=== PATIENT | female | born 1985 | race Caucasian/White ===

== ENCOUNTER 2018-10-17 10:15 | Emergency (ER) | payer OTHER ==
[2018-10-17 11:27] LABS: URINE BLOOD (Dip) POC Negative (NEGATIVE); URINE GLUCOSE (Dip) POC Negative (NEGATIVE); URINE KETONES (Dip) POC Negative (NEGATIVE); URINE LEUKOCYTE EST (Dip) POC 1+ (NEGATIVE); URINE NITRITE (Dip) POC Negative (NEGATIVE); URINE TOTAL PROTEIN POC Negative (NEGATIVE)
== END 2018-10-17 12:23 | disposition home or self-care (01) ==
LOC: FTE 12:23
DX: R30.0 Dysuria (principal)
CPT/HCPCS: 81003; 87086; 99283

== ENCOUNTER 2018-10-23 13:20 | Emergency (ER) | payer OTHER ==
[2018-10-23 16:32] LABS: ADD UMIC YES; UR ASCORBIC ACID NEGATIVE (NEGATIVE); UR BACTERIA FEW /HPF (NONE SEEN); UR BILIRUBIN (Dip) NEGATIVE (NEGATIVE); UR BLOOD (Dip) NEGATIVE (NEGATIVE); UR CLARITY CLOUDY (CLEAR); UR COLOR YELLOW (YELLOW); UR GLUCOSE (Dip) NEGATIVE (NEGATIVE); UR KETONES (Dip) NEGATIVE (NEGATIVE); UR LEUKOCYTE ESTERASE (Dip) 3+ Leu/ul (NEGATIVE); UR NITRITE (Dip) NEGATIVE (NEGATIVE); UR RBC 10 /HPF (0-5); UR SPECIFIC GRAVITY (Dip) 1.012 (1.003-1.030); UR SQUAMOUS EPITHELIAL CELL MODERATE /HPF (FEW); UR TOTAL PROTEIN (Dip) NEGATIVE (NEGATIVE); UR UROBILINOGEN (Dip) NEGATIVE (NEGATIVE); UR WBC > 182 /HPF (0-5)
[2018-10-23] MEDS: ACETAMINOPHEN 325 MG TAB PO (16:58)
== END 2018-10-23 17:26 | disposition home or self-care (01) ==
LOC: FTE 13:20
DX: O99.89 Other specified diseases and conditions complicating pregnancy, childbirth and the puerperium (principal); R39.9 Unspecified symptoms and signs involving the genitourinary system; Z3A.19 19 weeks gestation of pregnancy
CPT/HCPCS: 76805; 81001; 87086; 99284-25

== ENCOUNTER 2019-02-23 18:10 | Inpatient (IN) | payer OTHER ==
[2019-02-23 20:40] LABS: ADD MAN DIFF? NO
[2019-02-23 20:46] LABS: WHITE BLOOD COUNT 9.3 10^3/ul (4.8-10.8)
[2019-02-23 20:46] LABS: BASOPHILS % 0.3 % (0.0-2.0); EOSINOPHILS % 0.1 % (0.0-7.0); HEMATOCRIT 32.6 % (37.0-47.0); HEMOGLOBIN 10.5 g/dl (12.0-16.0); LYMPHOCYTES # 2.7 10^3/ul (0.8-2.9); LYMPHOCYTES % 28.6 % (15.0-51.0); MEAN CORPUSCULAR HEMOGLOBIN 28.2 pg (29.0-33.0); MEAN CORPUSCULAR HGB CONC 32.2 g/dl (32.0-37.0); MEAN CORPUSCULAR VOLUME 87.4 fl (82.0-101.0); MONOCYTE # 0.6 10^3/ul (0.3-0.9); MONOCYTES % 6.4 % (0.0-11.0); NEUTROPHILS % 64.1 % (39.0-77.0); PLATELET COUNT 124 10^3/UL (140-415); RED BLOOD COUNT 3.73 10^6/ul (4.20-5.40); RED CELL DISTRIBUTION WIDTH 13.5 % (11.5-14.5)
[2019-02-23 20:47] LABS: MEAN PLATELET VOLUME 13.6 fl (7.4-10.4)
[2019-02-23 21:05] LABS: ALANINE AMINOTRANSFERASE 134 IU/L (13-69); ALBUMIN 3.2 g/dl (3.3-4.9); ALBUMIN/GLOBULIN RATIO 1.14; ALKALINE PHOSPHATASE 261 IU/L (42-121); ANION GAP 8 (5-13); ASPARTATE AMINO TRANSFERASE 99 IU/L (15-46); BILIRUBIN,INDIRECT 0.4 mg/dl (0-1.1); BILIRUBIN,TOTAL 0.4 mg/dl (0.2-1.3); BLOOD UREA NITROGEN 9 mg/dl (7-20); CALCIUM 9.3 mg/dl (8.4-10.2); CARBON DIOXIDE 20 mmol/L (21-31); CHLORIDE 108 mmol/L (97-110); CREATININE 0.65 mg/dl (0.44-1.00); Estimated GFR > 60 mL/min (>60); GLUCOSE 77 mg/dl (70-220); SODIUM 136 mmol/L (135-144)
[2019-02-23 21:23] LABS: ADD UMIC YES; UR ASCORBIC ACID 20 mg/dL (NEGATIVE); UR BILIRUBIN (Dip) NEGATIVE (NEGATIVE); UR BLOOD (Dip) NEGATIVE (NEGATIVE); UR CLARITY CLEAR (CLEAR); UR COLOR YELLOW (YELLOW); UR GLUCOSE (Dip) NEGATIVE (NEGATIVE); UR KETONES (Dip) NEGATIVE (NEGATIVE); UR LEUKOCYTE ESTERASE (Dip) TRACE Leu/ul (NEGATIVE); UR NITRITE (Dip) NEGATIVE (NEGATIVE); UR RBC 0 /HPF (0-5); UR SPECIFIC GRAVITY (Dip) 1.008 (1.003-1.030); UR TOTAL PROTEIN (Dip) NEGATIVE (NEGATIVE); UR UROBILINOGEN (Dip) 1+ mg/dL (NEGATIVE); UR WBC 0 /HPF (0-5)
[2019-02-24] MEDS: BETAMET NA PHOS/AC(6 MG/ML) 2 ML INJ SYG IM (00:09)
[2019-02-24] MEDS ORDERED: ACETAMINOPHEN 325 MG TAB PO (01:00)
[2019-02-24] MEDS: DIPHENHYDRAMINE 25 MG CAP PO ×2 (01:17→07:39)
[2019-02-24 06:37] LABS: ADD MAN DIFF? NO
[2019-02-24 06:39] LABS: WHITE BLOOD COUNT 7.8 10^3/ul (4.8-10.8)
[2019-02-24 06:39] LABS: ABNORMAL IP MESSAGE 1; BASOPHILS % 0.1 % (0.0-2.0); HEMATOCRIT 33.9 % (37.0-47.0); LYMPHOCYTES # 1.6 10^3/ul (0.8-2.9); LYMPHOCYTES % 19.8 % (15.0-51.0); MEAN CORPUSCULAR HEMOGLOBIN 28.4 pg (29.0-33.0); MEAN CORPUSCULAR HGB CONC 32.4 g/dl (32.0-37.0); MEAN CORPUSCULAR VOLUME 87.4 fl (82.0-101.0); MEAN PLATELET VOLUME 13.6 fl (7.4-10.4); MONOCYTE # 0.2 10^3/ul (0.3-0.9); MONOCYTES % 2.6 % (0.0-11.0); NEUTROPHILS % 76.7 % (39.0-77.0); PLATELET COUNT 108 10^3/UL (140-415); RED BLOOD COUNT 3.88 10^6/ul (4.20-5.40); RED CELL DISTRIBUTION WIDTH 13.6 % (11.5-14.5)
[2019-02-24 06:41] LABS: POSITIVE DIFF @See below
[2019-02-24 07:02] LABS: ALANINE AMINOTRANSFERASE 138 IU/L (13-69); ALBUMIN 3.2 g/dl (3.3-4.9); ALBUMIN/GLOBULIN RATIO 0.96; ALKALINE PHOSPHATASE 291 IU/L (42-121); ANION GAP 6 (5-13); ASPARTATE AMINO TRANSFERASE 103 IU/L (15-46); BILIRUBIN,INDIRECT 0.4 mg/dl (0-1.1); BILIRUBIN,TOTAL 0.4 mg/dl (0.2-1.3); BLOOD UREA NITROGEN 9 mg/dl (7-20); CARBON DIOXIDE 23 mmol/L (21-31); CHLORIDE 109 mmol/L (97-110); CREATININE 0.67 mg/dl (0.44-1.00); Estimated GFR > 60 mL/min (>60); GLUCOSE 96 mg/dl (70-220); SODIUM 138 mmol/L (135-144); TOTAL PROTEIN 6.5 g/dl (6.1-8.1)
[2019-02-24] MEDS: FERROUS SULFATE (EC) 325 MG TAB PO (08:40)
[2019-02-24] MEDS: PRENATAL VITAMIN PO (08:41)
[2019-02-24 12:28] LABS: INR 0.82; PROTIME 11.4 Sec (11.9-14.9); PT RATIO 0.9
[2019-02-24 12:29] LABS: PARTIAL THROMBOPLASTIN TIME 24.8 Sec (23.0-35.0)
[2019-02-24 12:49] LABS: HEPATITIS B SURFACE ANTIGEN NEGATIVE (NEGATIVE)
[2019-02-24 14:56] LABS: RAPID PLASMA REAGIN NONREACTIVE (NR)
[2019-02-25] MEDS: BETAMET NA PHOS/AC(6 MG/ML) 2 ML INJ SYG IM (00:02)
[2019-02-25] MEDS ORDERED: BUTORPHANOL 2 MG INJ IV (09:30)
[2019-02-25] MEDS ORDERED: IBUPROFEN 600 MG TAB PO (09:30)
[2019-02-25] MEDS ORDERED: CARBOPROST 250 MCG INJ IM ×2 (09:30→13:00)
[2019-02-25] MEDS ORDERED: LIDOCAINE 1% (MPF) 30 ML INJ INJ (09:30)
[2019-02-25] MEDS ORDERED: OXYTOCIN 30 UNITS/LR 500 ML IV ×2 (09:30→13:00)
[2019-02-25] MEDS ORDERED: METHYLERGONOVINE 0.2 MG INJ IM (09:30)
[2019-02-25] MEDS ORDERED: MISOPROSTOL 200 MCG TAB PR ×2 (09:30→13:00)
[2019-02-25] MEDS: OXYTOCIN 30 UNITS/LR 500 ML IV ×4 (09:49→17:30)
[2019-02-25] MEDS: LACTATED RINGER'S 1,000 ML IV ×2 (09:50→11:01)
[2019-02-25] MEDS ORDERED: FENTAnyl 2MCG/ML-ROPIV 0.2% 100 ML (12:01)
[2019-02-25] MEDS ORDERED: DIPHENHYDRAMINE 50 MG INJ IV (13:00)
[2019-02-25] MEDS ORDERED: ONDANSETRON 4 MG TAB PO (13:00)
[2019-02-25] MEDS ORDERED: DIBUCAINE 1% 30 GM OINT TOP (13:00)
[2019-02-25] MEDS ORDERED: COSYNTROPIN 0.25 MG INJ IM (13:00)
[2019-02-25] MEDS ORDERED: NALOXONE (0.4 MG/ML) INJ IV ×2 (13:00→14:30)
[2019-02-25] MEDS ORDERED: ONDANSETRON 4 MG INJ IV ×2 (13:00)
[2019-02-25] MEDS ORDERED: FENTAnyl 2MCG/ML-ROPIV 0.2% 100 ML BAG EPI ×2 (13:00→14:30)
[2019-02-25] MEDS ORDERED: MAGNESIUM HYDROXIDE 30ML CUP PO (13:00)
[2019-02-25] MEDS ORDERED: HYDROCODONE/APAP (5/325) TAB PO (13:00)
[2019-02-25] MEDS ORDERED: NA PHOSPHATE/BIPHOS 133 ML ENEMA PR (13:00)
[2019-02-25] MEDS ORDERED: DIPHENHYDRAMINE 25 MG CAP PO (13:00)
[2019-02-25] MEDS ORDERED: SOD CHLORIDE 0.9% IVPB (14:00)
[2019-02-25] MEDS ORDERED: COSYNTROPIN IVPB (14:00)
[2019-02-25] MEDS: SENNA/DOCUSATE NA (8.6MG/50MG) TAB PO ×2 (17:38→20:39)
[2019-02-25] MEDS: LANOLIN HPA 1 PKT TOP (17:38)
[2019-02-25] MEDS: IBUPROFEN 600 MG TAB PO ×2 (17:38→23:46)
[2019-02-25] MEDS: WITCH HAZEL/GLYCERIN PAD PR (17:38)
[2019-02-25] MEDS: COSYNTROPIN IVPB (17:40)
[2019-02-25] MEDS: SOD CHLORIDE 0.9% IVPB (17:40)
[2019-02-25] MEDS: LACTATED RINGER'S 1,000 ML IV* (17:40)
[2019-02-25] MEDS: BENZOCAINE 20% 56 ML SPRAY TOP (20:44)
[2019-02-25] MEDS: HYDROCODONE/APAP (5/325) TAB PO (22:57)
[2019-02-26] MEDS: LACTATED RINGER'S 1,000 ML IV* ×3 (00:36→12:46)
[2019-02-26] MEDS: HYDROCODONE/APAP (5/325) TAB PO (04:57)
[2019-02-26] MEDS: IBUPROFEN 600 MG TAB PO ×3 (06:00→17:58)
[2019-02-26 06:52] LABS: ADD MAN DIFF? NO
[2019-02-26 06:58] LABS: ABNORMAL IP MESSAGE 1; BASOPHILS % 0.1 % (0.0-2.0); HEMATOCRIT 28.7 % (37.0-47.0); HEMOGLOBIN 9.2 g/dl (12.0-16.0); LYMPHOCYTES # 2.2 10^3/ul (0.8-2.9); LYMPHOCYTES % 13.9 % (15.0-51.0); MEAN CORPUSCULAR HEMOGLOBIN 28.3 pg (29.0-33.0); MEAN CORPUSCULAR HGB CONC 32.1 g/dl (32.0-37.0); MEAN CORPUSCULAR VOLUME 88.3 fl (82.0-101.0); MEAN PLATELET VOLUME 13.3 fl (7.4-10.4); MONOCYTE # 0.5 10^3/ul (0.3-0.9); MONOCYTES % 3.3 % (0.0-11.0); NEUTROPHIL # 12.7 10^3/ul (1.6-7.5); NEUTROPHILS % 81.6 % (39.0-77.0); PLATELET COUNT 109 10^3/UL (140-415); RED BLOOD COUNT 3.25 10^6/ul (4.20-5.40); RED CELL DISTRIBUTION WIDTH 13.9 % (11.5-14.5)
[2019-02-26 06:58] LABS: WHITE BLOOD COUNT 15.6 10^3/ul (4.8-10.8)
[2019-02-26 06:59] LABS: POSITIVE DIFF @See below
[2019-02-26] MEDS: SENNA/DOCUSATE NA (8.6MG/50MG) TAB PO ×2 (08:35→21:36)
[2019-02-27] MEDS: IBUPROFEN 600 MG TAB PO ×4 (00:29→18:00)
[2019-02-27 06:51] LABS: ADD MAN DIFF? NO
[2019-02-27 06:54] LABS: WHITE BLOOD COUNT 11.7 10^3/ul (4.8-10.8)
[2019-02-27 06:54] LABS: ABNORMAL IP MESSAGE 1; BASOPHILS % 0.3 % (0.0-2.0); EOSINOPHILS % 0.2 % (0.0-7.0); HEMATOCRIT 31.8 % (37.0-47.0); HEMOGLOBIN 10.1 g/dl (12.0-16.0); LYMPHOCYTES # 3.8 10^3/ul (0.8-2.9); LYMPHOCYTES % 32.5 % (15.0-51.0); MEAN CORPUSCULAR HEMOGLOBIN 28.3 pg (29.0-33.0); MEAN CORPUSCULAR HGB CONC 31.8 g/dl (32.0-37.0); MEAN CORPUSCULAR VOLUME 89.1 fl (82.0-101.0); MEAN PLATELET VOLUME 13.5 fl (7.4-10.4); MONOCYTE # 0.7 10^3/ul (0.3-0.9); MONOCYTES % 5.5 % (0.0-11.0); NEUTROPHIL # 7.1 10^3/ul (1.6-7.5); NEUTROPHILS % 60.4 % (39.0-77.0); PLATELET COUNT 138 10^3/UL (140-415); RED BLOOD COUNT 3.57 10^6/ul (4.20-5.40); RED CELL DISTRIBUTION WIDTH 14.3 % (11.5-14.5)
[2019-02-27 07:07] LABS: POSITIVE DIFF @See below
[2019-02-27 07:14] LABS: ALANINE AMINOTRANSFERASE 225 IU/L (13-69); ALBUMIN 2.8 g/dl (3.3-4.9); ALBUMIN/GLOBULIN RATIO 1.03; ALKALINE PHOSPHATASE 173 IU/L (42-121); ANION GAP 3 (5-13); ASPARTATE AMINO TRANSFERASE 108 IU/L (15-46); BILIRUBIN,INDIRECT 0.2 mg/dl (0-1.1); BILIRUBIN,TOTAL 0.2 mg/dl (0.2-1.3); BLOOD UREA NITROGEN 9 mg/dl (7-20); CALCIUM 8.4 mg/dl (8.4-10.2); CARBON DIOXIDE 28 mmol/L (21-31); CHLORIDE 108 mmol/L (97-110); CREATININE 0.63 mg/dl (0.44-1.00); Estimated GFR > 60 mL/min (>60); GLUCOSE 78 mg/dl (70-220); POTASSIUM 4.2 mmol/L (3.5-5.1); SODIUM 139 mmol/L (135-144); TOTAL PROTEIN 5.5 g/dl (6.1-8.1)
[2019-02-27] MEDS: DIPHTH/TET/ACEL PERTUSS (ADULT) 0.5 ML VIAL IM* (09:00)
[2019-02-27] MEDS: MEASLES,MUMPS,RUBELLA VACCINE INJ SC* (09:00)
[2019-02-27] MEDS: VARICELLA VACCINE LIVE/PF 1,350 UNIT/0.5 ML ML SC* (09:00)
[2019-02-27] MEDS: SENNA/DOCUSATE NA (8.6MG/50MG) TAB PO (09:18)
[2019-02-28 12:46] LABS: CHOLIC ACID 45.9 umol/L (< OR = 1.8); DEOXYCHOLIC ACID 0.6 umol/L (< OR = 2.4); TOTAL BILE ACIDS 55.5 umol/L (< OR = 6.8)
== END 2019-02-27 17:45 | disposition home or self-care (01) | DRG 805 ==
LOC: OBT 18:10 → L-D 02-24 23:35 → PP1 02-25 16:50 → OBT 21:17 → L-D 21:17
PROC: 10E0XZZ Delivery of Products of Conception, External Approach (ICD-10-PCS; principal; 2019-02-25)
PROC: 0HQ9XZZ Repair Perineum Skin, External Approach (ICD-10-PCS; 2019-02-25)
DX: O70.0 First degree perineal laceration during delivery (principal); K83.1 Obstruction of bile duct; Z37.0 Single live birth; O26.62 Liver and biliary tract disorders in childbirth; O69.81X0 Labor and delivery complicated by cord around neck, without compression, not applicable or unspecified; Z3A.37 37 weeks gestation of pregnancy
CPT/HCPCS: 62322; 76815; 76818; 80053; 81001; 83789; 85025; 85610; 85730; 86592; 86850; 86900; 86901; 87340; 90716